=== PATIENT | female | born 1985 | race Caucasian/White ===

== ENCOUNTER 2019-09-26 22:57 | Emergency (ER) | payer SELFPAY ==
[~2019-09-26] VITALS: Ht 162.6 cm; Wt 77.6 kg
[2019-09-26 23:02] VITALS: Ht 162.6 cm; Wt 77.6 kg
[2019-09-27 01:54] VITALS: BP 109/69
== END 2019-09-27 01:54 | disposition home or self-care (01) ==
LOC: ED 22:57
DX: M62.838 Other muscle spasm (principal)
CPT/HCPCS: J1885